=== PATIENT | male | born 1965 | race Caucasian/White ===

== ENCOUNTER 2022-03-17 14:21 | Inpatient (IN) | payer OTHER ==
--- OUTSIDE RECORDS SUMMARY | 2022-03-17 14:23 | XMS REPORT | Continuity of Care Document ---
:1965 Author Organization [facility] t Address [address] [place] [address] [place] [id number] Care Team Providers Name Role Phone RODNEY Attending Clinician Unavailable SHASHI LOPEZ Attending Clinician Unavailable JOHN GENE Attending Clinician Unavailable Raju_P Attending Clinician Unavailable FUNMILAYO_MARTHA Admitting Clinician Unavailable Raju_P Admitting Clinician Unavailable Payers Payer Name Policy Type Policy Number Effective Date Expiration Date Gianna HERNANDEZ [id number] 2021 ADMINISTRATION 4 00:00:00 [facility] [id number] [place] - [id number] Problems This patient has no known problems. Allergies, Adverse Reactions, Alerts Allergy Allergy Status Severity Reaction(s) Onset Inactive Treating Comm ents Source Name Type Date Date Clinician NO KNOWN Drug Active [facility] ALLERGIE [facility] Medications This patient has no known medications. Procedures This patient has no known procedures. Encounters Start End Encounter Admission Attending Care Care Encounter Source Date/Time Date/Time Type Type Clinicians Facility Department ID 2022-02-02 2022-02-02 Outpatient CALOS [facility]O [facility] [id number] 02:57:00 02:57:00 HAY 0426 [facility] 2021-02-19 2021-02-19 Outpatient IGNACIO SALGADO [facility] [id number] [facility] 12:00:00 12:00:00 IGNACIO LOPEZ [facility] 2020-06-27 2020-06-27 Outpatient Raju_P [facility] [id number] [place] 12:50:00 12:50:00 [id number] 2020-06-27 2020-06-27 Outpatient Raju_P [facility] G [id number] [place] 12:50:00 12:50:00 0923 [facility] 2020-04-15 2020-04-15 Outpatient Raju_P MM [facility] [id number] [place] 03:58:00 03:58:00 [id number] [facility] 2020-04-15 2020-04-15 Outpatient Raju_P MMG [facility] [id number] [place] 03:58:00 03:58:00 [id number] [facility] Results This patient has no known results.
[2022-03-17] MEDS ORDERED: MORPHINE 4 MG/ML SYR ONE ×2 (16:53→19:05)
[2022-03-17] MEDS ORDERED: ONDANSETRON 4 MG/2 ML VIAL ONE ×2 (16:53→19:05)
[2022-03-17] MEDS ORDERED: NA CHLORIDE 0.9% 1,000 ML ONE ×2 (16:54→22:38)
[2022-03-17 17:19] LABS: Absolute Lymphocytes (CBC) 0.9 K/uL (0.7-4.9); Hematocrit 49.3 % (39.6-49.0); Lymphocytes % 6.2 % (15.3-44.8); MPV 7.3 fL (7.6-11.3); RBC Red Blood Cell Count 5.31 M/uL (4.33-5.43)
[2022-03-17 17:44] LABS: Bilirubin Total 0.6 mg/dL (0.2-1.0); Potassium 3.5 mmol/L (3.5-5.1); Protein, Total 8.1 g/dL (6.4-8.2)
--- NOTE | 2022-03-17 18:31 | RAD REPORT ---
EXAM DESCRIPTION: CT - Abdomen Pelvis W Contrast - 03/17/2022 6:20 pm CLINICAL HISTORY: Abdominal pain COMPARISON: 2019 TECHNIQUE: Computed axial tomography of the abdomen pelvis was obtained. 100 cc Isovue-300 was admin istered intravenously. Oral contrast was not requested which limits evaluation of bowel and appendix All CT scans are performed using dose optimization technique as appropriate and may include automated exposure control or mA/KV adjustment according to patient size. FINDINGS: Cholelithiasis. The liver, spleen, pancreas, adrenal and kidneys appear unremarkable. There is no evidence of diverticulitis. Prostatic calcifications. Moderate right and small to moderate left inguinal hernias contain fat Small duodenal diverticulum. Small umbilical hernia IMPRESSION: Cholelithiasis
--- NOTE | 2022-03-17 18:32 | RAD REPORT ---
EXAM DESCRIPTION: Silvia Single View03/17/2022 5:01 pm CLINICAL HISTORY: Chest pain COMPARISON: none FINDINGS: The lungs appear clear of acute infiltrate. The heart is normal size IMPRESSION: No acute abnormalities displayed
[2022-03-17 19:07] LABS: Urine Blood Trace-lysed (Negative); Urine Glucose Negative (Negative); Urine Protein Negative (Negative); Urine pH 6.5 (5.0-7.0)
[2022-03-17 19:37] LABS: Urine Bacteria <20 /HPF (NONE SEEN); Urine Mucus LIGHT /HPF (NONE SEEN)
--- NOTE | 2022-03-17 19:57 | RAD REPORT ---
EXAM DESCRIPTION: US - Abdomen Exam Limited - 03/17/2022 7:45 pm CLINICAL HISTORY: Abdominal pain. FINDINGS: Multiple gallstones. Gallbladder wall is thickened measuring 5 millimeters. Common bile duct measures 9 millimeters IMPRESSION: Cholelithiasis. Thickened gallbladder wall probably indicating cholecystitis Dilated common bile duct may indicate choledocholithiasis
[2022-03-17] MEDS ORDERED: KETOROLAC 30 MG/ML INJ ONE (20:09)
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
[2022-03-17] MEDS ORDERED: PIPERACIL/TAZO 3.375 GM VIAL IV ONE (20:13)
[2022-03-17] MEDS ORDERED: NA CHLORIDE 0.9% 100 ML ONE (20:13)
[2022-03-17] MEDS ORDERED: LORazepam 2 MG/ML VIAL ONE (20:33)
[2022-03-17] MEDS ORDERED: MORPHINE 2 MG/ML SYR IV PRN (22:16)
[2022-03-17] MEDS ORDERED: NA CHLORIDE 0.9% 1,000 ML IV SCH (22:16)
[2022-03-17] MEDS ORDERED: SODIUM CHLORIDE 0.9% 10ML INJ IV PRN (22:16)
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
[2022-03-17 22:48] VITALS: BMI 34.4
[2022-03-18] MEDS: PIPER TAZO 3.375 GM in NA CHLORIDE 0.9% 100 ML IV SCH ×3 (01:00→17:00)
[2022-03-18] MEDS ORDERED: NA CHLORIDE 0.9% 100 ML ONE ×2 (01:41→09:25)
[2022-03-18] MEDS ORDERED: PIPERACIL/TAZO 3.375 GM VIAL IV ONE ×2 (01:41→09:25)
[2022-03-18 04:23] LABS: Absolute Lymphocytes (CBC) 1.3 K/uL (0.7-4.9); Hematocrit 42.1 % (39.6-49.0); Lymphocytes % 13.1 % (15.3-44.8); MPV 7.3 fL (7.6-11.3)
[2022-03-18 04:46] LABS: Albumin 2.8 g/dL (3.4-5.0); Bilirubin Total 0.5 mg/dL (0.2-1.0); Potassium 3.6 mmol/L (3.5-5.1); Protein, Total 6.5 g/dL (6.4-8.2)
[2022-03-18] MEDS: PANTOPRAZOLE 40 MG INJ IVP SCH (09:00)
[2022-03-18] MEDS: ONDANSETRON 4 MG/2 ML VIAL IV PRN ×2 (09:35→19:43)
[2022-03-18] MEDS ORDERED: KETOROLAC 30 MG/ML INJ ONE ×2 (09:38→17:04)
[2022-03-18] MEDS ORDERED: ONDANSETRON 4 MG/2 ML VIAL ONE ×3 (09:38→17:04)
[2022-03-18] MEDS ORDERED: KETOROLAC 30 MG/ML INJ IV ONE (09:40)
[2022-03-18] MEDS ORDERED: Ringers Lactate 1,000 ML IV ONE (14:33)
[2022-03-18] MEDS ORDERED: propofoL 200 MG/20 ML VIAL IV ONE ×2 (14:34→16:33)
[2022-03-18] MEDS ORDERED: LIDOCAINE 2% MPF 5 ML VIAL ONE ×2 (14:35→16:33)
[2022-03-18] MEDS ORDERED: FENTANYL CITR 250 MCG/5 ML ONE (14:35)
[2022-03-18] MEDS ORDERED: ROCURONIUM 50 MG/5 ML VIAL IV ONE ×2 (14:35→17:22)
[2022-03-18] MEDS ORDERED: GLYCOPYRROLATE 0.2 MG/ML SYR ONE ×2 (14:36→14:37)
[2022-03-18] MEDS ORDERED: MIDAZOLAM HCL 2 MG/2 ML INJ ONE (14:36)
[2022-03-18] MEDS ORDERED: NEOSTIGMINE 1 MG/ML -10 ML VIAL ONE (14:38)
[2022-03-18] MEDS ORDERED: NA CHLORIDE 0.9% 1,000 ML ONE (16:42)
[2022-03-18] MEDS ORDERED: dexAMETHasone 10 MG/ML VIAL ONE (17:04)
--- NOTE | 2022-03-18 18:19 | P.OP ---
Preoperative diagnosis: Acute on chronic cholecystitis with cholelithiasis Postoperative diagnosis: The same Primary procedure: Laparoscopic cholecystectomy Secondary procedure: Cholangiogram Anesthesia: General Estimated blood loss: Less than 30 cc Specimen: Gallbladder and contents Operative Technique: The patient brought the operating room and placed supine on the table. After t he induction of adequate general endotracheal anesthesia, there the abdomen was prepped with a DuraPrep solution, and he was draped in usual aseptic manner. The patient has had previous surgery around his umbilicus. Because of that we went to the right upper quadrant. A small 5 mm skin incision was made. Using a hemostat this was brought down to the fascia. We were now able to use the Veress needle and created pneumoperitoneum to approximately 12 mmHg. With a 5 mm camera down this trocar we could see that were actually there were adhesions to the anterior abdominal wall. Hence a subumbilical incision was made. The 1012 mm trocar was inserted in this area. Another 5 Mcnulty was placed in the upper midline, and another in the right upper quadrant. The patient placed in reverse Trendelenburg and the table rolled to the left we could visualize the right upper quadrant. We could see a markedly distended and chronically inflamed gallbladder with an acute component. Stones were visible bulging through the body of the gallbladder itself. A grasper was placed on the fundus. Another on down by the body of the gallbladder. Gentle dissection allowed us to expose Joshi's pouch and the sweep of the artery cystic duct. We were now able to advance a grasper onto Joshi's pouch. Applying lateral traction we exposed out these 2 structures the artery and the duct. Having obtained the critical view a clip was placed on the artery first which was clipped and divided. Attention was now turned down towards the cystic duct. An opening was made into the cystic duct through which we obtained a cholangiogram. The cholangiogram demonstrated flow contrast into the duodenum. It was rather generous in size, but we did not see any stones in the extrahepatic biliary tree at this time. At this point the catheter was removed. Clips were placed on the distal portion of the cystic duct. The cystic duct was now fully transected. This having been done we reset a clip on the duct. This also let us open the artery once more which blood for a few seconds. The clips were then replaced and adequate hemostasis was ensured. The gallbladder was dissected free from the liver bed, placed into the Endo Catch, and brought out through the umbilical trocar site. At this point the abdomen was then irrigated with a copious amount of a saline solution. The irrigating fluid was aspirated from the peritoneal cavity. The attention was turned towards the umbilical trocar site. This fascial defect was now approximated using interrupted sutures using an absorbable suture. At this point the pneumoperitoneum was collapsed, the sutures tied, and guillermo applied to the skin. At the end of the procedure he was stable and sent to the recovery room. Needle sponge instrument count were correct. No drains were placed. Complications: None Transferred to: Recovery Room Condition: Good
[2022-03-18] MEDS ORDERED: NALOXONE 0.4 MG/ML VIAL ONE (18:32)
[2022-03-18] MEDS ORDERED: HYDROCODONE/APAP 7.5/325 MG TAB PO PRN (18:35)
[2022-03-18] MEDS: HYDROMORPHONE HCL 1 MG/ML INJ ONE ×2 (18:43→18:48)
[2022-03-18] MEDS ORDERED: HYDROMORPHONE HCL 1 MG/ML INJ ONE (19:04)
[2022-03-18] MEDS: Ringers Lactate 1,000 ML IV SCH (19:39)
--- NOTE | 2022-03-18 19:40 | P.PN ---
Date of Service: 03/18/22 Subjective: pain tolerable with medication no worsening ROS: 10 point ROS as noted above, otherwise negative Physical exam GEN: Alert, oriented, NAD HEENT: Normal conjunctiva, sclera anicteric CV: Regular rate and rhythm, no edema Pulm: Non-labored respirations on room air ABD: Soft, TTP in RUQ, epigastrium, LUQ Neuro: Normal speech, normal affect Problem List Acute cholecystitis/rule out choledocholithiasis Diabetes type 2diet controlled Hypertension Alcohol abuse Tobacco abuse NPO, IVF IV antibiotics general surgery consulted, tentative plan for OR today accucheks, sliding scale monitor for alcohol withdrawal serial abd exams VTE: SCDs Code: full Dispo: home 1-2 days Time Spent Managing Pts Care (In Minutes): 35
[2022-03-18] MEDS: MORPHINE 4 MG/ML SYR IV PRN (19:46)
[2022-03-18] MEDS: HYDROMORPHONE HCL 0.5 MG/0.5 ML INJ IV PRN (23:26)
[2022-03-19] MEDS: PIPER TAZO 3.375 GM in NA CHLORIDE 0.9% 100 ML IV SCH ×2 (01:00→08:16)
[2022-03-19] MEDS: MORPHINE 4 MG/ML SYR IV PRN (02:08)
[2022-03-19] MEDS: ONDANSETRON 4 MG/2 ML VIAL IV PRN (02:10)
[2022-03-19] MEDS: HYDROMORPHONE HCL 0.5 MG/0.5 ML INJ IV PRN (05:03)
[2022-03-19] MEDS: Ringers Lactate 1,000 ML IV SCH (05:04)
[2022-03-19 05:21] LABS: Absolute Lymphocytes (CBC) 0.5 K/uL (0.7-4.9); Hematocrit 41.3 % (39.6-49.0); Lymphocytes % 3.8 % (15.3-44.8); MPV 7.5 fL (7.6-11.3); RBC Red Blood Cell Count 4.44 M/uL (4.33-5.43)
[2022-03-19 05:40] LABS: Albumin 2.9 g/dL (3.4-5.0); Bilirubin Total 0.5 mg/dL (0.2-1.0); Potassium 4.1 mmol/L (3.5-5.1); Protein, Total 6.9 g/dL (6.4-8.2)
[2022-03-19] MEDS ORDERED: NA CHLORIDE 0.9% 100 ML ONE (07:27)
[2022-03-19] MEDS ORDERED: PIPERACIL/TAZO 3.375 GM VIAL IV ONE (07:28)
[2022-03-19] MEDS: PANTOPRAZOLE 40 MG INJ IVP SCH (08:16)
[2022-03-19 09:28] VITALS: O2SAT 92
[2022-03-19 10:18] VITALS: TEMP 97.7
[2022-03-19 12:41] VITALS: BP 139/86
--- NOTE | 2022-03-19 14:15 | P.DS ---
Admission Date: 03/18/22 Discharge Date: 03/19/22 Disposition: ROUTINE DISCHARGE Discharge Condition: GOOD Reason for Admission: Acute cholecystitis Consultations: General Surgery - Dr. Betancourt Brief History of Present Illness: 56yo M, PMH: DM2, HTN, alcohol dependence. Presented to ED with epigastric /RUQ pain x 1 day. Workup significant for leukocytosis, thickened gallbladder wall, cholelithiasis, and dilated common bile duct. General surgery was consulted in the ED and patient was admitted for further management. Hospital Course: Problem List Acute cholecystitis/ruled out choledocholithiasis Diabetes type 2diet controlled Hypertension Alcohol abuse Tobacco abuse Patient was found to have acute cholecystitis. Underwent laparoscopic cholecystectomy with intra-operative cholangiogram with Dr. Betancourt without complications. Discharged home with pain medication as needed. Follow up with Dr. Betancourt Vital Signs/Physical Exam: Temp Pulse Resp BP Pulse Ox 97.7 F 58 16 139/86 93 03/19/22 12:00 03/19/22 12:00 03/19/22 12:00 03/19/22 12:00 03/19/22 12:00 Physical exam GEN: Alert, oriented, NAD HEENT: Normal conjunctiva, sclera anicteric CV: Regular rate and rhythm, no edema Pulm: Non-labored respirations on room air ABD: Soft, minimal tenderness near incisions. dressing c/d/i Laboratory Data at Discharge: WBC 12.3 K/uL (4.3-10.9) H D 03/19/22 05:04 Hgb 13.6 g/dL (13.6-17.9) 03/19/22 05:04 Hct 41.3 % (39.6-49.0) 03/19/22 05:04 Plt Count 282 K/uL (152-406) 03/19/22 05:04 Sodium 136 mmol/L (136-145) 03/19/22 05:04 Potassium 4.1 mmol/L (3.5-5.1) 03/19/22 05:04 BUN 10 mg/dL (7-18) 03/19/22 05:04 Creatinine 0.74 mg/dL (0.55-1.3) 03/19/22 05:04 Glucose 128 mg/dL (74-106) H 03/19/22 05:04 Total Bilirubin 0.5 mg/dL (0.2-1.0) 03/19/22 05:04 AST 18 U/L (15-37) 03/19/22 05:04 ALT 28 U/L (12-78) 03/19/22 05:04 Alkaline Phosphatase 67 U/L (45-117) 03/19/22 05:04 Lipase 43 U/L (73-393) L 03/18/22 03:46 Home Medications: Amlodipine [Norvasc*] 10 mg DAILY 03/17/22 Lisinopril [Zestril] 10 mg DAILY 03/17/22 Omeprazole 20 mg DAILY 03/17/22 Physician Discharge Instructions: Patient was found to have acute cholecystitis. Underwent laparoscopic cholecystectomy with Dr. Betancourt without complications. Discharged home with pain medication as needed. Follow up with Dr. Betancourt Followup: Unknown,U [Primary Care Provider] - 1-2 Weeks (Call for appointment.) Romulo Betancourt MD [OUTSIDE PHYSICIAN] - 1 Week (Call for appointment.) Time spent managing pt's care (in minutes): 40
--- NOTE | 2022-03-19 14:30 | P.PN ---
Date of Service: 03/19/22 S: Patient doing well, no specific complaints. Much improved. Anxious to go home. Oh: Abdomen is clean, incisions look well A: Surgically stable P: Discharge home. He will see me next week in my office. He is to call for an appointment. I have sent in a prescription through my [facility] for hydrocodone.
== END 2022-03-19 14:48 | disposition home or self-care (01) | DRG 419 ==
LOC: ER 14:21 → ERHOLD 21:57 → OBSVTOIN 03-18 16:17 → 4TH 03-18 17:08
PROVIDERS: ADMIT Hospitalist; ATTEND Hospitalist
PROC: BF031ZZ Plain Radiography of Gallbladder and Bile Ducts using Low Osmolar Contrast (ICD-10-PCS; 2022-03-18)
PROC: 0FT44ZZ Resection of Gallbladder, Percutaneous Endoscopic Approach (ICD-10-PCS; principal; 2022-03-18 14:30)
DX: K80.12 Calculus of gallbladder with acute and chronic cholecystitis without obstruction (principal); E11.9 Type 2 diabetes mellitus without complications; I10 Essential (primary) hypertension; F10.10 Alcohol abuse, uncomplicated; F17.200 Nicotine dependence, unspecified, uncomplicated; Z20.822 Contact with and (suspected) exposure to COVID-19
CPT/HCPCS: 36415; 71045; 74177; 74300; 76705; 80053; 81003; 81015; 83690; 85025; 88304; 96361; 96365; 96366; 96375; 99285; C9113; G0378; J1100; J1170; J2250; J2270; J2310; J2405; J2543; J2704; J2710; J3010; J7030; J7120; Q9967; U0003

== ENCOUNTER 2023-03-22 08:49 | Emergency (ER) | payer OTHER ==
--- OUTSIDE RECORDS SUMMARY | 2023-03-22 08:52 | XMS REPORT | Continuity of Care Document ---
:1965 Author Organization [facility] t Address [address] [place] [id number] Care Team Providers Name Role Phone RODNEY Attending Clinician Unavailable IGNACIO LOPEZ Attending Clinician Unavailable IGNACIO LOPEZ Attending Clinician Unavailable Zacu_Maritza Attending Clinician Unavailable RODNEY Admitting Clinician Unavailable Raju_P Admitting Clinician Unavailable Payers Payer Name Policy Type Policy Number Effective Date Expiration Date Gianna HERNANDEZ [id number] 2021 ADMINISTRATION 4 00:00:00 [facility] [id number] [place] [id number] Problems This patient has no known problems. Allergies, Adverse Reactions, Alerts Allergy Allergy Status Severity Reaction(s) Onset Inactive Treating Comm ents Source Name Type Date Date Clinician NO KNOWN Drug Active [facility] Medications This patient has no known medications. Procedures This patient has no known procedures. Encounters Start End Encounter Admission Attending Care Care Encounter Source Date/Time Date/Time Type Type Clinicians Facility Department ID 2022-02-02 2022-02-02 Outpatient CALOS LEO [facility] [id number] 02:57:00 02:57:00 [facility] 0426 [facility] Out[facility] 2021-02-19 2021-02-19 Outpatient IGNACIO SALGADO [facility] [id number] [facility] 12:00:00 12:00:00 IGNACIO LOPEZ [facility] 2020-06-27 2020-06-27 Outpatient Raju_P [facility] [id number] 12:50:00 12:50:00 [facility] 2020-06-27 2020-06-27 Outpatient Raju_P [id number] [id number] [place] 12:50:00 12:50:00 [facility] 2020-04-15 2020-04-15 Outpatient Raju_P [facility] [id number] [id number] [place] 03:58:00 03:58:00 [facility] 2020-04-15 2020-04-15 Outpatient Raju_P G MMG [id number] [place] 03:58:00 03:58:00 [facility] Results This patient has no known results.
--- NOTE | 2023-03-22 09:54 | RAD REPORT ---
EXAM DESCRIPTION: RAD - Foot Left 3 View - 03/22/2023 9:43 am CLINICAL HISTORY: foot pain COMPARISON: No comparisons FINDINGS/IMPRESSION: No acute fracture. No malalignment. No significant focal degenerative changes.
--- NOTE | 2023-03-22 09:55 | RAD REPORT ---
EXAM DESCRIPTION: RAD - Ankle Left 3 View - 03/22/2023 9:43 am CLINICAL HISTORY: ankle pain COMPARISON: Foot Left 3 View dated 03/22/2023 FINDINGS/IMPRESSION: No acute fracture. No malalignment. Mild midfoot degenerative changes.
--- NOTE | 2023-03-22 10:23 | EDPHYS ---
Physician Documentation [facility] Name: Nicholas Mack Jr Age: 57 yrs Sex: Male : 1965 Arrival Date: 03/22/2023 Time: 08:49 Bed 10 Private MD: ED Physician Mark Olivia HPI: 03/22 09:03 This 57 yrs old Male presents to ER via Ambulatory with complaints of Ankle Injury. [facility] 09:03 The patient presents with an injury, pain. Onset: The symptoms/episode began/occurred jmm acutely, 1 day(s) ago. Associated signs and symptoms: Pertinent positives:. Modifying factors: The symptoms are alleviated by nothing, the symptoms are aggravated by nothing. The patient has not experienced similar symptoms in the past. This is a 57/m with a history of htn, that presents to the ED with complaints of right ankle pain after misteping off a step stool. Patient states his ankle rolled and he felt a pop. Denies other injury. . Historical: - Allergies: 09:06 No Known Allergies; cm10 - PMHx: 09:06 Hypertensive disorder; cm10 - PSHx: 09:06 heart procedures; major wyatt with trach.; neck SX, L total knee replacement; cm10 - Immunization history:: Adult Immunizations up to date. - Social history:: Smoking status: Patient reports the use of cigarette tobacco products, smokes one pack cigarettes per day. ROS: 09:03 Constitutional: Negative for fever, chills, and weight loss, Cardiovascular: Negative jmm for chest pain, palpitations, and edema, Respiratory: Negative for shortness of breath, cough, wheezing, and pleuritic chest pain. 09:03 MS/extremity: Positive for pain, swelling. 09:03 All other systems are negative. Exam: 13:19 Constitutional: This is a well developed, well nourished patient who is awake, alert, jmm and in no acute distress. Head/Face: atraumatic. Eyes: EOMI, no conjunctival erythema appreciated ENT: Moist Mucus Membranes Neck: Trachea midline, Supple Chest/axilla: Normal chest wall appearance and motion. Cardiovascular: Regular rate and rhythm. No edema appreciated Respiratory: Normal respirations, no respiratory distress appreciated Abdomen/GI: Non distended Back: Normal ROM 13:19 Musculoskeletal/extremity: left ankle ttp at the base of the 5th metatarsal fracture, compartments are soft, full dorsalis pulse, nvi. 13:19 Skin: Appearance: Color: normal in color. 13:19 Neuro: Orientation: is normal, Mentation: is normal, Memory: is normal. 13:19 Psych: Behavior/mood is pleasant, cooperative. Vital Signs: 09:04 BP 120 / 93; Pulse 98; Resp 16; Temp 98.3; Pulse Ox 100% ; Weight 92.99 kg; Height 5 cm10 ft. 2 in. ; Pain 8/10; 10:47 BP 118 / 84; Pulse 95; Resp 18; Pulse Ox 99% on R/A; ko1 09:04 Body Mass Index 37.49 (92.99 kg, 157.48 cm) cm10 09:04 Pain Scale: Adult cm10 MDM: 09:03 Patient medically screened. [facility] 09:03 Differential diagnosis: fracture. Differential diagnosis: sprain. Data reviewed: vital [facility] signs, nurses notes, radiologic studies, plain films. Consideration of Admission/Observation Patient was admitted/placed on observation. I considered the following discharge prescriptions or medication management in the emergency department Medications were administered in the Emergency Department. See DEC. 03/22 09:04 Order name: Foot Left 3 View XRAY; Complete Time: 09:56 [facility] 03/22 09:04 Order name: Ankle Left 3 View XRAY; Complete Time: 09:56 [facility] 03/22 10:28 Order name: Misc. Order: ortho boot; Complete Time: 10:47 [facility] Administered Medications: No medications were administered Disposition: 16:54 Co-signature as Attending Physician, Mark BALDWIN was immediately available on-site ms3 in the Emergency Department for consultation in the care of the patient. Disposition Summary: 03/22/23 10:22 Discharge Ordered Location: Home [facility] Condition: Stable [facility] Diagnosis - Sprain of ankle [facility] Followup: [facility] - With: Demarcus Arambula MD - When: 2 - 3 days - Reason: Recheck today's complaints, Continuance of care, Re-evaluation by your physician Discharge Instructions: - Discharge Summary Sheet [facility] - Ankle Sprain jm - RICE Therapy for Routine Care of Injuries [facility] Forms: - Medication Reconciliation Form [facility] - Thank You Letter [facility] - Antibiotic Education jmm - Prescription Opioid Use [facility] Prescriptions: - Diclofenac Sodium 75 mg Oral Tablet Sustained Release - take 1 tablet by ORAL route 2 times per day; 30 tablet; Refills: 0, Product [facility] Selection Permitted Signatures: Dispatcher [employer] Doe Vega PA PA jmm Sims, Marcus, DO DO ms3 Holly Malone, RN RN cm10
--- NOTE | 2023-03-22 10:23 | ER ---
Nurse's Notes [facility] Name: Nicholas Mack Jr Age: 57 yrs Sex: Male : 1965 Arrival Date: 03/22/2023 Time: 08:49 Bed 10 Private MD: Diagnosis: Sprain of ankle Presentation: 03/22 09:04 Chief complaint: Patient states: Pt presenting for right ankle and foot pain onset cm10 yesterday evening. Patient states that he jumped off of a stool and heard a pop. Coronavirus screen: Vaccine status: Patient reports being unvaccinated. Client denies travel out of the [place] in the last 14 days. At this time, the client does not indicate any symptoms associated with coronavirus-19. Ebola Screen: No symptoms or risks identified at this time. Initial Sepsis Screen: Does the patient meet any 2 criteria? No. Patient's initial sepsis screen is negative. Does the patient have a suspected source of infection? No. Patient's initial sepsis screen is negative. Risk Assessment: Do you want to hurt yourself or someone else? Patient reports no desire to harm self or others. Onset of symptoms was March 21, 2023. 09:04 Method Of Arrival: Ambulatory cm10 09:04 Acuity: YAHIR 4 cm10 Historical: - Allergies: 09:06 No Known Allergies; cm10 - PMHx: 09:06 Hypertensive disorder; cm10 - PSHx: 09:06 heart procedures; major wyatt with trach.; neck SX, L total knee replacement; cm10 - Immunization history:: Adult Immunizations up to date. - Social history:: Smoking status: Patient reports the use of cigarette tobacco products, smokes one pack cigarettes per day. Screenin:16 [facility] ED Fall Risk Assessment (Adult) History of falling in the last 3 months, cm10 including since admission No falls in past 3 months (0 pts) Confusion or Disorientation No (0 pts) Intoxicated or Sedated No (0 pts) Impaired Gait Yes (1 pt). Abuse screen: Denies threats or abuse. Denies injuries from another. Nutritional screening: No deficits noted. Tuberculosis screening: No symptoms or risk factors identified. Assessment: 09:11 Musculoskeletal: Swelling present in right foot Reports pain in right foot. cm10 09:15 General: Appears in no apparent distress. Behavior is calm, cooperative, appropriate cm10 for age. Neuro: No deficits noted. Respiratory: No deficits noted. Respiratory effort is even, unlabored. Vital Signs: 09:04 BP 120 / 93; Pulse 98; Resp 16; Temp 98.3; Pulse Ox 100% ; Weight 92.99 kg; Height 5 cm10 ft. 2 in. ; Pain 8/10; 10:47 BP 118 / 84; Pulse 95; Resp 18; Pulse Ox 99% on R/A; ko1 09:04 Body Mass Index 37.49 (92.99 kg, 157.48 cm) cm10 09:04 Pain Scale: Adult cm10 ED Course: 08:52 Patient arrived in ED. rg4 08:52 Doe Nick PA is PHCP. [facility] 08:52 Mark Olivia DO is Attending Physician. m 09:06 Triage completed. cm10 09:07 Holly Malone, RN is Primary Nurse. cm10 09:07 Arm band placed on Patient placed in an exam room. cm10 09:16 Patient has correct armband on for positive identification. cm10 09:45 Foot Left 3 View XRAY In Process Unspecified. EDMS 09:45 Ankle Left 3 View XRAY In Process Unspecified. EDMS 10:21 Demarcus Arambula MD is Referral Physician. [facility] 10:47 No provider procedures requiring assistance completed. Patient did not have IV access ko1 during this emergency room visit. WALKING BOOT. Administered Medications: No medications were administered Medication: 09:16 VIS not applicable for this client. cm10 Outcome: 10:22 Discharge ordered by . [facility] 10:47 Discharged to home ambulatory. ko1 10:47 Condition: stable 10:47 Discharge instructions given to patient, Instructed on discharge instructions, follow up and referral plans. medication usage, Demonstrated understanding of instructions, follow-up care, Prescriptions given X 1. 10:49 Patient left the ED. ko1 Signatures: Dispatcher [employer] EDMS Doe Nick PA PA jmm Garcia, Rubi rg4 Lee Ann Horton, RN RN ko1 Holly Malone, RN RN cm10
[2023-03-22 11:08] VITALS: TEMP 98.3
[2023-03-22 11:09] VITALS: BP 118/84; O2SAT 99
== END 2023-03-22 10:49 | disposition home or self-care (01) ==
LOC: ER 08:49
DX: S93.401A Sprain of unspecified ligament of right ankle, initial encounter (principal); I10 Essential (primary) hypertension; F17.210 Nicotine dependence, cigarettes, uncomplicated
CPT/HCPCS: 99283